=== PATIENT | female | born 1965 | race Caucasian/White ===

== ENCOUNTER 2016-12-11 05:45 | Inpatient (IN) | payer OTHER ==
[2016-12-11] VITALS (7 sets, daily range): BP systolic 111–177; BP diastolic 69–86
[~2016-12-11] VITALS: Ht 157.5 cm; Wt 100.8 kg
[~2016-12-11 05:45] MED LIST: AMBIEN10 MG PO; AVENTYL,PAMELOR10 MG PO; CALAN120 MG PO; COUMADIN2.5 MG PO; EFFEXOR75 MG PO; ELAVIL25 MG; ELAVIL50 MG PO; IMITREX50 MG PO; IRON325 M1 PO; LEXAPRO20 MG PO; METOPROLOL TART25 MG PO; MOBIC7.5 MG PO; MOTRIN600 MG PO; NEURONTIN100 MG PO; OSPHENA60 MG PO; PAXIL CR37.5 MG PO; PERCOCET 5/31 TABLET PO; SKELAXIN800 MG PO; SYNTHROID75 MCG PO; TIROSINT50 MCG PO; TOPAMAX100 MG PO; TRAMADOL HCL50 MG PO; VERAPAMIL HCL240 MG PO; VISTARIL25 MG PO; VOLTAREN-XR100 MG PO; VYTORIN 10-201 EACH PO; VYTORIN 10/21 TABLET PO; XANAX0.25 MG PO; ZYRTEC10 M2 PO
[2016-12-11] MEDS ORDERED: SYNTHROID75 MCG PO (06:11)
[2016-12-11] MEDS ORDERED: SYNTHROID50 MCG PO (06:12)
[2016-12-11 13:43] LABS: PROTHROMBIN TIME 10.6 (9.2-11.2)
[2016-12-12 04:01] VITALS: BP 134/75
[2016-12-12 06:16] LABS: HEMATOCRIT 29.5 % (36.0-46.0)
[2016-12-12 06:50] LABS: ANION GAP 9 MEQ/L (2-14); CHLORIDE 105 MEQ/L (99-109); GFR ESTIMATE (CALCULATED) > 59 mL/min/; GLUCOSE 126 mg/dL (70-99); POTASSIUM 4.5 MEQ/L (3.7-5.4); SAMPLE HEMOLYSIS CHECK 0; SAMPLE ICTERIC CHECK 0; SAMPLE LIPEMIA CHECK 0; SODIUM 141 MEQ/L (136-147); UREA NITROGEN (BUN) 12 mg/dL (9-23)
[2016-12-12] MEDS ORDERED: VISTARIL25 MG PO (07:52)
[2016-12-12] MEDS ORDERED: COUMADIN2.5 MG PO (07:52)
[2016-12-12] MEDS ORDERED: PERCOCET 5/31 TABLET PO (07:52)
[2016-12-12 08:00] VITALS: BP 131/75
[2016-12-12 11:38] VITALS: BP 149/70
[2016-12-12 15:59] VITALS: BP 139/69
[2016-12-12 20:15] VITALS: BP 143/73
[2016-12-12 20:40] VITALS: BP 143/73
[2016-12-13 00:01] VITALS: BP 141/74
[2016-12-13 00:41] VITALS: BP 141/74
[2016-12-13 04:05] VITALS: BP 170/78
[2016-12-13 04:57] LABS: HEMATOCRIT 29.7 % (36.0-46.0); MCV 97.7 FL (83-99)
[2016-12-13 05:10] LABS: INTER. NORMALIZED RATIO 1.4; PROTHROMBIN TIME 13.9 (9.2-11.2)
[2016-12-13 07:30] VITALS: BP 147/75
[2016-12-13 11:41] VITALS: BP 122/69
== END 2016-12-13 13:54 | DRG 470 ==
LOC: 3WEST 05:45 → 2SOUTH 05:45 → 3WEST 11:11 → 2SOUTH 14:37 → 3WEST 12-13 13:54
PROVIDERS: Orthopaedic Surgery
PROC: 0SRC0J9 Replacement of Right Knee Joint with Synthetic Substitute, Cemented, Open Approach (ICD-10-PCS; principal; 2016-12-11)
DX: M17.11 Unilateral primary osteoarthritis, right knee (principal); D64.9 Anemia, unspecified; M25.561 Pain in right knee; I10 Essential (primary) hypertension; E03.9 Hypothyroidism, unspecified; F41.9 Anxiety disorder, unspecified; F32.9 Major depressive disorder, single episode, unspecified; Z98.1 Arthrodesis status
CPT/HCPCS: 80048; 85014; 85018; 85610; 93971; C1713; J0330; J0690; J1100; J1170; J1885; J2250; J2405; J2795; J3010; J7050; J7120

== ENCOUNTER → 2017-06-21 | Outpatient (CLI) | payer OTHER ==
[~2017-06-21] MED LIST changes: +SYNTHROID50 MCG PO
== END | disposition home or self-care (01) ==
LOC: CDC 14:24
DX: Z01.810 Encounter for preprocedural cardiovascular examination (principal); R94.31 Abnormal electrocardiogram [ECG] [EKG]
CPT/HCPCS: 93000

== ENCOUNTER 2018-01-15 18:27 | Emergency (ER) | payer OTHER ==
[~2018-01-15] VITALS: Ht 157.5 cm; Wt 104.6 kg
[2018-01-15 18:43] VITALS: BP 128/85
== END 2018-01-15 20:14 | disposition home or self-care (01) ==
LOC: EME 18:27
PROC: 2W39X1Z Immobilization of Left Upper Extremity using Splint (ICD-10-PCS; principal; 2018-01-15)
DX: S52.135A Nondisplaced fracture of neck of left radius, initial encounter for closed fracture (principal); W05.1XXA Fall from non-moving nonmotorized scooter, initial encounter; Z96.653 Presence of artificial knee joint, bilateral; Z88.5 Allergy status to narcotic agent
CPT/HCPCS: 73080; 73110; 99281; 99283